=== PATIENT | female | born 1990 | race American Indian/Alaskan Native ===

== ENCOUNTER 2016-08-10 09:36 | Emergency (ER) | payer MEDICAID ==
[2016-08-10 09:37] VITALS: BMI 19.5
--- NOTE | 2016-08-10 10:04 | ED PDOC ---
HPI: General Adult Time Seen by Provider: 08/10/16 09:52 Chief Complaint (Nursing): Headache History Per: Patient History/Exam Limitations: no limitations Additional Complaint(s): 26yo female comes to the ED complaining of symptoms of reflux and congestion after drinking coffee. No abdominal pain, vomit, fever. Patient is 5 month . Past Medical History Reviewed: Historical Data, Nursing Documentation, Vital Signs Vital Signs: Last Vital Signs Temp 99.1 F 08/10/16 09:41 Pulse 102 H 08/10/16 09:41 Resp 20 08/10/16 09:41 BP 103/57 L 08/10/16 09:41 Pulse Ox 98 08/10/16 10:04 - Medical History PMH: No Chronic Diseases - Surgical History Surgical History: No Surg Hx - Family History Family History: States: Unknown Family Hx - Living Arrangements Living Arrangements: With Family - Social History Drugs: Denies - Home Medications Home Medications: Ambulatory Orders Medication Instructions Recorded Naproxen 500 mg PO BID #30 ect 11/05/14 Azithromycin 250 mg PO DAILY #6 tab 11/29/14 Guaifenesin [Mucinex] 600 mg PO BID #20 ter 11/29/14 Fluticasone Nasal [Flonase] 1 actuation NS BID #1 bottle 02/04/15 Pseudoephedrine Hydrochlorid 120 mg PO BID #10 ter 02/04/15 [Sudafed 12 Hour] Tramadol HCl [Ultram] 50 mg PO Q6 #15 tab 07/12/15 Azithromycin [Zithromax Z-Elvin] 250 mg PO DAILY #5 tab 09/18/15 Guaifenesin [Mucinex] 1,200 mg PO BID #14 ter 09/18/15 Tramadol HCl [Ultram] 50 mg PO Q6 #12 tab 11/09/15 predniSONE [Prednisone] 10 mg PO BID #10 tab 01/31/16 Amoxicillin/Clavulanate [Augmentin 1 tab PO BID #14 tab 03/19/16 875 MG-125 MG] Ibuprofen [Motrin] 600 mg PO Q6 PRN #15 tab 03/19/16 Acetaminophen [Tylenol 325mg tab] 650 mg PO Q6H PRN #50 tab 04/26/16 Ondansetron ODT [Zofran ODT] 4 mg PO Q6 PRN #16 odt 05/09/16 Metoclopramide [Reglan] 1 tab PO TID PRN #25 tab 05/24/16 Budesonide [Rhinocort Allergy] 2 spray NS DAILY PRN #1 spray.pump 06/02/16 Famotidine [Pepcid] 20 mg PO Q12 #20 tab 08/10/16 - Allergies Allergies/Adverse Reactions: Allergies Allergy/AdvReac Type Severity Reaction Status Date / Time isopropyl alcohol Allergy PAIN Verified 08/10/16 09:48 Review of Systems ROS Statement: Except As Marked, All Systems Reviewed And Found Negative Constitutional: Negative for: Fever Gastrointestinal: Negative for: Vomiting, Abdominal Pain Physical Exam - Reviewed Nursing Documentation Reviewed: Yes Vital Signs Reviewed: Yes - Physical Exam Appears: Positive for: Well, Non-toxic, No Acute Distress Head Exam: Positive for: ATRAUMATIC, NORMAL INSPECTION, NORMOCEPHALIC Skin: Positive for: Warm, Dry Eye Exam: Positive for: EOMI, PERRL Cardiovascular/Chest: Positive for: Regular Rate, Rhythm Respiratory: Positive for: Normal Breath Sounds. Negative for: Rales, Rhonchi, Wheezing Gastrointestinal/Abdominal: Positive for: Normal Exam, Soft. Negative for: Tenderness Extremity: Positive for: Normal ROM - ECG O2 Sat by Pulse Oximetry: 98 (RA) Pulse Ox Interpretation: Normal Disposition - Clinical Impression Clinical Impression: GERD (gastroesophageal reflux disease) - Patient ED Disposition Is Patient to be Admitted: No Counseled Patient/Family Regarding: Diagnosis, Need For Followup, Rx Given - Disposition [facility] Disposition: Routine/Home Disposition Time: 10:04 Condition: FAIR Prescriptions: Famotidine [Pepcid] 20 mg PO Q12 #20 tab Instructions: Gastroesophageal Reflux Disease (ED) Additional Comments - Additional Comments Additional Comments: Scribe Attestation: Documented by Silvano Quinn acting as a scribe for Genaro Gallego MD. Provider Scribe Attestation: All medical record entries made by the Scribe were at my direction and personally dictated by me. I have reviewed the chart and agree that the record accurately reflects my personal performance of the history, physical exam, medical decision making, and the department course for this patient. I have also personally directed, reviewed, and agree with the discharge instructions and disposition.
[2016-08-10 10:47] VITALS: BP 103/57; PULSE 102; RESP 20; TEMP 99.1; O2SAT 98
== END 2016-08-10 10:15 | disposition home or self-care (01) ==
LOC: H.ER 09:36
DX: R51 Headache (principal); K21.9 Gastro-esophageal reflux disease without esophagitis

== ENCOUNTER 2016-08-12 15:41 | Emergency (ER) | payer MEDICAID ==
[2016-08-12 15:06] VITALS: BMI 19.5
[2016-08-12 17:07] VITALS: BP 122/82; PULSE 90; RESP 16; TEMP 98; O2SAT 100
--- NOTE | 2016-08-12 18:00 | ED PDOC ---
HPI: Abdomen Time Seen by Provider: 08/12/16 17:22 Chief Complaint (Nursing): Abdominal Pain Chief Complaint (Provider): abdominal pain History Per: Patient History/Exam Limitations: no limitations Additional Complaint(s): 26yo F in ED 22week c/o of lump to right lower pelvic area noted most when standing x 1-2 weeks. no vaginal bleeding no dysuria or hematuira no fever chills nausea or vomiting no bites to area no injury to area. pt admits to some tenderness noted to the area. pt was cleared by OB-ED Past Medical History Reviewed: Historical Data, Nursing Documentation, Vital Signs Vital Signs: Last Vital Signs Temp 98.0 F 08/12/16 17:06 Pulse 90 08/12/16 17:06 Resp 16 08/12/16 17:06 BP 122/82 08/12/16 17:06 Pulse Ox 100 08/12/16 17:06 - Medical History PMH: No Chronic Diseases - Family History Family History: States: Unknown Family Hx - Home Medications Home Medications: Ambulatory Orders Medication Instructions Recorded Naproxen 500 mg PO BID #30 ect 11/05/14 Azithromycin 250 mg PO DAILY #6 tab 11/29/14 Guaifenesin [Mucinex] 600 mg PO BID #20 ter 11/29/14 Fluticasone Nasal [Flonase] 1 actuation NS BID #1 bottle 02/04/15 Pseudoephedrine Hydrochlorid 120 mg PO BID #10 ter 02/04/15 [Sudafed 12 Hour] Tramadol HCl [Ultram] 50 mg PO Q6 #15 tab 07/12/15 Azithromycin [Zithromax Z-Elvin] 250 mg PO DAILY #5 tab 09/18/15 Guaifenesin [Mucinex] 1,200 mg PO BID #14 ter 09/18/15 Tramadol HCl [Ultram] 50 mg PO Q6 #12 tab 11/09/15 predniSONE [Prednisone] 10 mg PO BID #10 tab 01/31/16 Amoxicillin/Clavulanate [Augmentin 1 tab PO BID #14 tab 03/19/16 875 MG-125 MG] Ibuprofen [Motrin] 600 mg PO Q6 PRN #15 tab 03/19/16 Acetaminophen [Tylenol 325mg tab] 650 mg PO Q6H PRN #50 tab 04/26/16 Ondansetron ODT [Zofran ODT] 4 mg PO Q6 PRN #16 odt 05/09/16 Metoclopramide [Reglan] 1 tab PO TID PRN #25 tab 05/24/16 Budesonide [Rhinocort Allergy] 2 spray NS DAILY PRN #1 spray.pump 06/02/16 Famotidine [Pepcid] 20 mg PO Q12 #20 tab 08/10/16 - Allergies Allergies/Adverse Reactions: Allergies Allergy/AdvReac Type Severity Reaction Status Date / Time isopropyl alcohol Allergy PAIN Verified 08/12/16 17:05 Review of Systems ROS Statement: Except As Marked, All Systems Reviewed And Found Negative Constitutional: Negative for: Fever, Chills Gastrointestinal: Positive for: Abdominal Pain. Negative for: Nausea, Vomiting Genitourinary Female: Negative for: Dysuria, Frequency Physical Exam - Reviewed Nursing Documentation Reviewed: Yes Vital Signs Reviewed: Yes - Physical Exam Appears: Positive for: Well, Non-toxic, No Acute Distress Head Exam: Positive for: ATRAUMATIC, NORMAL INSPECTION, NORMOCEPHALIC Skin: Positive for: Normal Color, Warm, DRY Cardiovascular/Chest: Positive for: Regular Rate, Rhythm Respiratory: Positive for: CNT, Normal Breath Sounds Gastrointestinal/Abdominal: Positive for: Bowel Sounds, Soft, Tenderness (noted to right ingunial aarea-protusion noted only when standing, reduced when supine. somewaht tendenr. no evidence of strangulation. ) Back: Positive for: Normal Inspection Extremity: Positive for: Normal ROM Neurologic/Psych: Positive for: Alert, Oriented - ECG O2 Sat by Pulse Oximetry: 100 Medical Decision Making Medical Decision Making: pt most likely with non-incarcerated [id number] strongly to continue f.u with pmd and surgery for f/u advised to use warm compress to area if pain and Tylenol only for pain,. Disposition - Clinical Impression Clinical Impression: Hernia - Patient ED Disposition Is Patient to be Admitted: No Counseled Patient/Family Regarding: Diagnosis, Need For Followup - Disposition Referrals: [facility] [Outside] Pj Phillips MD [Staff Provider] - Disposition: Routine/Home Disposition Time: 18:03 Condition: STABLE Instructions: Inguinal Hernia (ED)
--- NOTE | 2016-08-12 18:19 | OBHP ---
Datetime: 08/12/2016 16:24 IP Adm Impression: , intrauterine IP Chief Complaint Other: lump in groin IP Admit Plan: Observation/Evaluation; Discharge home Admit Comment, IP Provider: 26 y/o , IUP 22 wks presents c/o of 2 day hx of lump in right groin. Pain is intermittent, rates 5/10 when present, exacerbated by standing. No alleviating factors. PMH: scoliosis Medications: none Allergies: NDKA Social: no etoh, tobacco, illicit drug use Surgical hx: denies OBhx: 2SAB O: pt examined in supine and standing position A: IUP at 22 wks with possible right inguinal hernia P: will d/c pt to ED. no acute intervention at this time. Pt seen and examined with Dr. Carlos Mcconnell PGY1 OBH ADDENDUM: PT seen _ exmined by me. Agree with assessment and pln. Note pt denies cramping, va g bleeding. Report good fm. no ob c/o. Extremities - PN: Normal Abdomen - PN: Abnormal Lungs - PN: Normal Heart - PN: Normal General - PN: Normal Comments, ACOG Physical Exam: No lymphadenopahy in b/l groin. right inguinal : small lump palpable, non reducible. mildly tender to palpation. left inguinal area: no lump palpable, non tender. EGA AdmitDate IP: 22.2 Vital Signs Provider: Reviewed; Within Normal Limits IP Chief Complaint: Other
== END 2016-08-12 18:39 | disposition home or self-care (01) ==
LOC: H.ER 15:41 → H.EROB2 15:41 → H.ER 18:39
DX: K40.90 Unilateral inguinal hernia, without obstruction or gangrene, not specified as recurrent (principal); O26.92 Pregnancy related conditions, unspecified, second trimester; Z3A.22 22 weeks gestation of pregnancy

== ENCOUNTER 2016-08-16 13:18 | Emergency (ER) | payer MEDICAID ==
[2016-08-16 14:13] VITALS: BMI 20.5
--- NOTE | 2016-08-16 15:05 | OBHP ---
Datetime: 08/16/2016 14:05 IP Adm Impression: , intrauterine IP Admit Plan: Observation/Evaluation; Discharge home Admit Comment, IP Provider: 26 y/o , IUP 22 wks 6days with no significant past medical history w ho presents complaining of one week hx of lump in her right groin close to her pubic area, associated with constant pain, exacerbating by coughing, mildly alleviated with tylenol low doses. Also she has had nasal congestion and cough for few days. Patient denies fever,chills, nausea, vomiting, constip ation or other complains. Denies vaginal bleeding/discharge, LOF, abdominal pain or cramps. Reports g ood movements. PMH: scoliosis PSHx: no reported Medications: vitamins Allergies: NDKA Social: no etoh, tobacco, illicit drug use OBhx: 2SAB O: Pt was examined in supine and standing position: small lump in right groin close to pubic area, palpable with induced cough. Tender to palpation, no reducible. No changes of overlying skin noted. A: 26 y/o with IUP at 22 wks6d with possible right sided groin hernia. P: Tylenol 650 mg once PO for pain DC to home No acute intervention at this time. Continue with Tylenol 650 mg every 6 hours PRN for pain. Normal saline nasal spray PRN for nasal congestion Patient has a F/U appointment at [facility] on August 31, 2016, but we recommend to make an appointment befor e scheduled date. We recommend to consider evaluation for general surgery for final diagnosis and fur ther management of current complains. Pt has been seen and examined with Dr. Cornejo. Linda Anguiano PGY1 [employer] [facility]ist Addendum: 26 yo at 22+3 wks c/ right mons pain w/ coughing, dx'd w/ a herni a in ED on 08/12/2016. On exam, right mons bulges w/ cough. Rec that she take tylenol 650 mg PRN, f /u w/ PMD and surgeon. (ES) Pelvic Type - PN: Adequate Extremities - PN: Normal Abdomen - PN: Normal Lungs - PN: Normal Heart - PN: Normal Thyroid - PN: Normal Neurologic - PN: Normal HEENT - PN: Normal General - PN: Normal FHR - Baseline A Provider: 150 Membranes, Provider: Intact Comments, ACOG Physical Exam: No lymphadenopahy in b/l groin. right inguinal : small lump palpable in standing position, non reducible,mildly tender to palpatio n. left inguinal area: no lump palpable, non tender. EGA AdmitDate IP: 22.6 Vital Signs Provider: Reviewed; Within Normal Limits IP Chief Complaint: Maternal discomfort NICHD Variability Prov Fetus A: Moderate 6-25bpm NICHD Accel Fetus A IP Provider: 10X10 FHR Category Provider Fetus A: Category I NICHD Decel Fetus A IP Provider: None Genitourinary Exam: Normal
[2016-08-18] MEDS ORDERED: Albuterol 0.083% Inhal Sol (2.5 mg/3 mL) UD ONE (08:54)
== END 2016-08-16 14:20 | disposition home or self-care (01) ==
LOC: H.EROB2 13:18
DX: O26.92 Pregnancy related conditions, unspecified, second trimester (principal); K46.9 Unspecified abdominal hernia without obstruction or gangrene; Z3A.22 22 weeks gestation of pregnancy

== ENCOUNTER 2016-10-27 14:42 | Emergency (ER) | payer SELFPAY ==
[2016-10-27 15:24] VITALS: BMI 18.3
[2016-10-27] MEDS ORDERED: Lactated Ringer's 2,000 ML IV ONE (15:25)
[2016-10-27 15:59] LABS: SQUAMOUS EPITHIAL 2 /hpf (0-5); URINE BACTERIA RARE (<OCC); URINE BILIRUBIN NEGATIVE (NEGATIVE); URINE BLOOD NEGATIVE (NEGATIVE); URINE CALCIUM OXALATE CRYSTALS MOD /hpf (<OCC); URINE CLARITY SLIGHTY-CLOUDY (Clear); URINE COLOR YELLOW (YELLOW); URINE GLUCOSE (UA) NEG (Normal); URINE LEUKOCYTE ESTERASE NEG Leu/uL (Negative); URINE NITRATE NEGATIVE (NEGATIVE); URINE PROTEIN NEGATIVE (NEGATIVE); URINE UROBILINOGEN 0.2-1.0 mg/dL (0.2-1.0)
--- NOTE | 2016-10-27 23:47 | OBHP ---
Datetime: 10/27/2016 15:34 IP Adm Impression: , intrauterine ; No Active Labor IP Adm Impression Other: Threatened labor IP Admit Plan: Observation/Evaluation Admit Comment, IP Provider: 26 y/o with 33 weeks GA, AVA 12/17/16 by 12 weeks US, presenting for uterine contraction that began at 14:00 today. Pt reports being walking at onset, CTX occurs alanis ry 3 minutes, last for 1 minute with 6/10 intensity. Last coitus yesterday. Pt denies ROM, headache, CP, SOB, vaginal bleeding or dysuria. Medications: PNV. PMHx : scoliosis PSHx denied OBHx: 2 spontaneous abortions in 1st trimester, D_C performed. GynHx: ASCUS and HPV + in 2014. IUD removal in 2015. A_P: 26 y/o IUP at 33+w Threatened labor S/P intercourse within 24h PLAN: Urinalysis was ordered. LR IV fluid 2L started. Sheng Christine PGY-1. OB Hospitalist on-call: I saw and examined this patient myself...agree with note nad will re-exami ne to see if any cervical change Pelvic Type - PN: Adequate Extremities - PN: Normal Abdomen - PN: Normal Back - PN: Normal Breast - PN: Not Done Lungs - PN: Normal Heart - PN: Normal Thyroid - PN: Normal Neurologic - PN: Normal HEENT - PN: Normal General - PN: Normal FHR - Baseline A Provider: 140 Membranes, Provider: Intact Contraction Comments Provider: ocasional Comments, ACOG Physical Exam: Cervix: closed. ROS: General: no fatigue; no weakness HEENT: no ARAUZ; no visual dist CV: no CP; no palpitations RESP: no cough; no SOB GI: no N/V/D : no f/U/D MS: no joint pain Gestation - Est Wks by US: 33.0 Pool Provider: Negative IP Hx Assessment: The History has been Reviewed and is Current EGA AdmitDate IP: 33.1 Vital Signs Provider: Reviewed; Within Normal Limits IP Chief Complaint: Uterine contractions NICHD Variability Prov Fetus A: Moderate 6-25bpm NICHD Accel Fetus A IP Provider: 15X15 FHR Category Provider Fetus A: Category I NICHD Decel Fetus A IP Provider: None Dilatation, Provider: 0 cm Effacement, Provider: 0 Genitourinary Exam: Normal DTRs - PN: Normal
--- NOTE | 2016-10-27 23:49 | OBDCSUM ---
Datetime: 10/27/2016 17:00 Discharged to, Provider: Home Follow up at, Provider: Dionna Lema Disch Instr Activity: Normal activity Disch Instr Diet: Restricted, specify Discharge Diet restrict Prov: BRAT diet Discharge Diagnosis, Provider: False Labor - Undelivered Discharge Time: 10/27/2016 17:00 Follow up in weeks, Provider: next week Disch Referrals: None Disch Activity Restrictions: No sexual activity Discharge Comment, Provider: She felt better and less pain after 2 liter IVF...re-examined at 17:00p m...no cervical change...will dicsharge home with labor instructions. refrain from intercourse until 35-36w.
== END 2016-10-27 17:00 | disposition home or self-care (01) ==
LOC: H.EROB2 14:42
DX: O47.03 False labor before 37 completed weeks of gestation, third trimester (principal); O09.93 Supervision of high risk pregnancy, unspecified, third trimester; Z3A.33 33 weeks gestation of pregnancy; Z87.39 Personal history of other diseases of the musculoskeletal system and connective tissue
CPT/HCPCS: 81003; 99283; J7120

== ENCOUNTER 2017-05-01 10:07 | Emergency (ER) | payer MEDICAID ==
[2017-05-01 10:42] VITALS: BMI 19.3
[2017-05-01 10:43] VITALS: BP 108/76; PULSE 74; RESP 18; TEMP 97.7; O2SAT 100
[2017-05-01] MEDS ORDERED: Oxycodone/Acetaminophen 5/325 mg Tab PO STA (11:10)
--- NOTE | 2017-05-01 11:11 | ED PDOC ---
HPI: Dental Pain/Injury Time Seen by Provider: 05/01/17 10:11 Chief Complaint (Nursing): Dental Pain Chief Complaint (Provider): Toothache History Per: Patient Additional Complaint(s): Pt is a 27 yo female, no PMH, c/o left lower tooth pain that radiates to left ear x2 days. Reports taking Tylenol without relief Past Medical History Reviewed: Nursing Documentation, Vital Signs Vital Signs: Last Vital Signs Temp 97.7 F 05/01/17 10:42 Pulse 74 05/01/17 10:42 Resp 18 05/01/17 10:42 BP 108/76 05/01/17 10:42 Pulse Ox 100 05/01/17 10:42 - Medical History PMH: No Chronic Diseases - Surgical History Surgical History: No Surg Hx - Family History Family History: States: No Known Family Hx - Living Arrangements Living Arrangements: With Family - Home Medications Home Medications: Ambulatory Orders Medication Instructions Recorded Vit No.126/Iron/Folic 1 tab PO DAILY 10/27/16 [Prenavite] Ibuprofen [Motrin] 600 mg PO Q6 #20 tab 05/01/17 RX: Penicillin VK [Penicillin VK 500 mg PO Q6H 7 Days tab 05/01/17 Tab] oxyCODONE/Acetaminophen [Percocet 1 ea PO Q6 PRN #5 tab 05/01/17 5/325 mg Tab] - Allergies Allergies/Adverse Reactions: Allergies Allergy/AdvReac Type Severity Reaction Status Date / Time isopropyl alcohol Allergy PAIN Verified 08/18/16 07:37 Review of Systems ROS Statement: Except As Marked, All Systems Reviewed And Found Negative ENT: Positive for: Other (dentla pain) Physical Exam - Reviewed Nursing Documentation Reviewed: Yes Vital Signs Reviewed: Yes - Physical Exam Appears: Positive for: Well, Non-toxic, No Acute Distress Head Exam: Positive for: ATRAUMATIC, NORMAL INSPECTION, NORMOCEPHALIC Skin: Positive for: Normal Color, Warm, DRY Eye Exam: Positive for: EOMI, Normal appearance, PERRL ENT: Positive for: Normal ENT Inspection, Other (no dental carries noted. Pain to left 2-3rd lower molars. no surrounding edema, erythema or flutuance noted ot gumline. ) Neck: Positive for: Normal, Painless ROM Cardiovascular/Chest: Positive for: Regular Rate, Rhythm Respiratory: Positive for: CNT, Normal Breath Sounds Gastrointestinal/Abdominal: Positive for: Normal Exam, Bowel Sounds, Soft Back: Positive for: Normal Inspection Extremity: Positive for: Normal ROM Neurologic/Psych: Positive for: Alert, Oriented - ECG O2 Sat by Pulse Oximetry: 100 Medical Decision Making Medical Decision Making: Medicated with Motrin and Percocet PO Given Dental follow up and PCN RX in the event, redness, swelling fever occur. importance of follow up stressed. Advised to return to ED if at anytime condition worsens Disposition - Clinical Impression Clinical Impression: Toothache - Patient ED Disposition Is Patient to be Admitted: No - Disposition Referrals: Winnie Aburto DMD [Staff Provider] - Disposition: Routine/Home Disposition Time: 12:00 Condition: STABLE Prescriptions: Ibuprofen [Motrin] 600 mg PO Q6 #20 tab oxyCODONE/Acetaminophen [Percocet 5/325 mg Tab] 1 ea PO Q6 PRN #5 tab PRN Reason: Pain, Severe (8-10) RX: Penicillin VK [Penicillin VK Tab] 500 mg PO Q6H 7 Days tab Instructions: Toothache (ED) Forms: [employer] (Panamanian)
[2017-05-01] MEDS ORDERED: Oxycodone/Acetaminophen 5/325 mg Tab ONE (11:46)
== END 2017-05-01 13:40 | disposition home or self-care (01) ==
LOC: H.ER 10:07
DX: K08.89 Other specified disorders of teeth and supporting structures (principal)